=== PATIENT | female | born 1950 | race Caucasian/White ===

== ENCOUNTER 2017-10-05 09:26 | Day surgery (SDC) | payer MEDICARE, MEDICAID ==
[~2017-10-05] VITALS: Ht 165.1 cm; Wt 74.1 kg
[~2017-10-05 09:26] MED LIST: ALBU18HF2 INH; ASCO500C15 PO; ASPI-1265 PO; CAL1TABL8 PO; CHOL100046 PO; DULO20CA50 PO; HYDR-3193 PO; LORA1TAB PO; MULT1TAB70 PO; NAPR-56 PO; ROSU40TA PO; SUMA50TA PO; TIOT4MIS3 IH; VALA500T PO
[2017-10-05] MEDS ORDERED: MIDAZolam 5mg/5ml vial ONE (09:33)
[2017-10-05] MEDS ORDERED: fentaNYL/PF 50MCG/1 ML 2ML syringe ONE (09:33)
[2017-10-05 09:36] VITALS: BP 112/73
[2017-10-05 11:05] VITALS: BP 120/79
[2017-10-05 11:15] VITALS: BP 144/67
[2017-10-05 11:25] VITALS: BP 110/75
[2017-10-05 11:35] VITALS: BP 112/77
== END 2017-10-05 11:36 | disposition home or self-care (01) ==
LOC: GI LAB 09:26
PROVIDERS: ATTEND Internal Medicine Gastroenterology
DX: Z09 Encounter for follow-up examination after completed treatment for conditions other than malignant neoplasm (principal); D12.3 Benign neoplasm of transverse colon; K63.5 Polyp of colon; K52.89 Other specified noninfective gastroenteritis and colitis; E78.5 Hyperlipidemia, unspecified; F17.210 Nicotine dependence, cigarettes, uncomplicated; J45.998 Other asthma; I25.10 Atherosclerotic heart disease of native coronary artery without angina pectoris; K21.9 Gastro-esophageal reflux disease without esophagitis; F41.9 Anxiety disorder, unspecified; M19.90 Unspecified osteoarthritis, unspecified site; F32.9 Major depressive disorder, single episode, unspecified; Z98.41 Cataract extraction status, right eye; Z98.42 Cataract extraction status, left eye; Z90.89 Acquired absence of other organs; Z72.89 Other problems related to lifestyle; Z90.710 Acquired absence of both cervix and uterus; Z85.72 Personal history of non-Hodgkin lymphomas; Z86.010 Personal history of colon polyps; Z79.82 Long term (current) use of aspirin; Z98.890 Other specified postprocedural states; Z79.899 Other long term (current) drug therapy
CPT/HCPCS: 45380; 45385; 99153; G0500; J2250; J3010; J7030; A4620

== ENCOUNTER 2019-02-07 10:26 | Inpatient (IN) | payer MEDICARE, MEDICAID ==
[~2019-02-07] VITALS: Ht 167.6 cm; Wt 70.9 kg
[~2019-02-07 10:26] MED LIST changes: -CAL1TABL8 PO; -CHOL100046 PO
[2019-02-07] MEDS ORDERED: fentaNYL/PF 50MCG/1 ML 2ML syringe IV ONE (10:50)
[2019-02-07 11:21] LABS: BASOPHILS % (AUTO) 0.2 % (0-1); EOSINOPHILS % (AUTO) 0.3 % (0-6); HEMATOCRIT 43.1 % (35.0-45.0); HEMOGLOBIN 14.9 g/dl (12.0-16.0); LYMPHOCYTES # (AUTO) 1.4 X10'3 (1.1-4.8); LYMPHOCYTES % (AUTO) 14.9 % (21-51); MEAN CORPUSCULAR HEMOGLOBIN 31.7 PG (27.0-31.0); MEAN CORPUSCULAR HGB CONC 34.5 g/dL (33.0-36.5); MEAN CORPUSCULAR VOLUME 91.8 FL (78-98); MEAN PLATELET VOLUME 9.5 FL (7.4-10.4); MONOCYTES # (AUTO) 0.8 X10'3 (0-0.9); MONOCYTES % (AUTO) 9.3 % (2-12); NEUTROPHILS # (AUTO) 6.9 X10'3 (1.8-7.7); NEUTROPHILS % (AUTO) 75.3 % (42-75); PLATELET COUNT 154 X10'3 (140-440); RED CELL DISTRIBUTION WIDTH 13.8 % (11.5-14.5); WHITE BLOOD COUNT 9.1 X10'3 (4.5-11.0)
[2019-02-07 11:33] LABS: PARTIAL THROMBOPLASTIN TIME 24 SECONDS (22-32)
[2019-02-07] MEDS ORDERED: magnesium 2GM in 50ml NS 50 ML IV PRN (11:40)
[2019-02-07] MEDS ORDERED: ondansetron/PF 4mg/2ml inj IV PRN (11:40)
[2019-02-07] MEDS ORDERED: magnesium hydroxide 30ml (MOM) UD suspension PO PRN (11:40)
[2019-02-07] MEDS ORDERED: potassium Cl 20 mEq SR tablet PO PRN ×2 (11:40)
[2019-02-07] MEDS ORDERED: acetaminophen 325mg tablet PO PRN (11:40)
[2019-02-07] MEDS ORDERED: morphine 2 MG/ML inj. syringe IV PRN (11:40)
[2019-02-07] MEDS ORDERED: mag hydrox/Alum hydrox/simeth 30ml oral suspension PO PRN (11:40)
[2019-02-07] MEDS ORDERED: HYDROcodone/acetaminophen 5mg/325mg tablet PO PRN (11:40)
[2019-02-07] MEDS ORDERED: magnesium 4gm in 100ml NS 100 ML IV PRN (11:40)
[2019-02-07] MEDS ORDERED: potassium CL 10mEq/100ml bag 100 ML IV PRN ×2 (11:40)
[2019-02-07 11:43] LABS: ALANINE AMINOTRANSFERASE 32 U/L (12-78); ALBUMIN 3.8 G/DL (3.4-5.0); ALBUMIN/GLOBULIN RATIO 1.2 (1.1-1.5); ALKALINE PHOSPHATASE 102 IU/L (46-116); ANION GAP 9 (8-16); ASPARTATE AMINO TRANSFERASE 18 U/L (10-37); BILIRUBIN,TOTAL 0.9 MG/DL (0.1-1.0); BLOOD UREA NITROGEN 11 MG/DL (7-18); BUN/CREATININE RATIO 14.1 (6.6-38.0); CALCIUM 9.5 MG/DL (8.5-10.1); CHLORIDE 106 MMOL/L (99-107); CREATININE 0.78 MG/DL (0.40-0.90); GLUCOSE 112 MG/DL (70-104); POTASSIUM 3.8 MMOL/L (3.5-5.1); SODIUM 142 MMOL/L (135-145); TOTAL CARBON DIOXIDE 26.9 MMOL/L (24-32); TOTAL PROTEIN 7.1 G/DL (6.4-8.2); eGFR 73 ML/MIN
[2019-02-07] MEDS: normal saline 1000ml 1,000 ML IV SCH ×3 (11:53→15:52)
[2019-02-07] MEDS ORDERED: FAMC500T18 PO (13:36)
[2019-02-07] MEDS ORDERED: DULO-31 PO (13:36)
[2019-02-07 13:46] LABS: CLARITY,URINE CLOUDY (Clear); COLOR,URINE YELLOW (Yellow); GLUCOSE, URINE NEGATIVE (Neg); KETONES,URINE NEGATIVE (Neg); LEUKOCYTE ESTERASE ,URINE SMALL (Neg); NITRITES, URINE POSITIVE (Neg); OCCULT BLOOD,URINE NEGATIVE (Neg); PROTEIN,URINE NEGATIVE (Neg); UROBILINOGEN,URINE 0.2 E.U/dL (0.2-1.0)
[2019-02-07 13:47] LABS: UA COLLECTION TYPE FOLEY CATH
[2019-02-07 13:53] LABS: MUCUS STRANDS FEW /LPF (Neg); SQUAMOUS EPITHELIAL CELL,UR FEW /LPF (FEW); WBC CLUMPS,URINE MODERATE /HPF (NEGATIVE)
[2019-02-07 13:54] LABS: BACTERIA,URINE 4+ /HPF (Neg); RBC,URINE 0-2 /HPF (0-2); WBC,URINE 20-30 /HPF (0-4)
[2019-02-07] MEDS ORDERED: LORazepam 2 mg/ml vial IV PRN (14:45)
[2019-02-07] MEDS ORDERED: haloperidol lactate 5mg/ml inj IM PRN (14:45)
[2019-02-07] MEDS ORDERED: haloperidol 5mg tablet PO PRN (14:45)
[2019-02-07] MEDS ORDERED: LORazepam 1 MG tablet PO PRN (14:45)
[2019-02-07] MEDS: ipratropium/albuterol 3ml nebule NEB SCH ×2 (15:17→20:02)
[2019-02-07] MEDS: morphine 2 MG/ML inj. syringe IV PRN (15:32)
--- NOTE | 2019-02-07 15:47 | NUR ---
received patient to room 5735L
[2019-02-07 16:24] VITALS: BP_SYST 114; BP_SYST 132; BP_DIAS 75; BP_DIAS 79
[2019-02-07 18:00] VITALS: BP 132/75
[2019-02-07] MEDS: HYDROcodone/acetaminophen 10/325mg tab PO PRN ×2 (19:30→23:32)
--- NOTE | 2019-02-07 20:00 | NUR ---
pt states constant pain unrelieved by PO pain med; IV Morphine discussed however pt declines additional pain med at present time. pt remains in [facility] traction. Addendum: 02/07/19 at 2300 by Kika Finch RN Amended: Links added.
[2019-02-07 21:34] VITALS: BP 120/69
[2019-02-08] VITALS (17 sets, daily range): BP systolic 100–148; BP diastolic 60–88
[2019-02-08] MEDS: ipratropium/albuterol 3ml nebule NEB SCH ×4 (02:02→20:04)
[2019-02-08 06:13] LABS: BASOPHILS % (AUTO) 0.3 % (0-1); EOSINOPHILS # (AUTO) 0.1 X10'3 (0-0.9); EOSINOPHILS % (AUTO) 0.9 % (0-6); HEMATOCRIT 38.2 % (35.0-45.0); HEMOGLOBIN 12.9 g/dl (12.0-16.0); LYMPHOCYTES # (AUTO) 2.2 X10'3 (1.1-4.8); LYMPHOCYTES % (AUTO) 29.5 % (21-51); MEAN CORPUSCULAR HEMOGLOBIN 31.7 PG (27.0-31.0); MEAN CORPUSCULAR HGB CONC 33.8 g/dL (33.0-36.5); MEAN CORPUSCULAR VOLUME 93.8 FL (78-98); MEAN PLATELET VOLUME 9.7 FL (7.4-10.4); MONOCYTES # (AUTO) 0.8 X10'3 (0-0.9); MONOCYTES % (AUTO) 10.3 % (2-12); NEUTROPHILS # (AUTO) 4.4 X10'3 (1.8-7.7); PLATELET COUNT 133 X10'3 (140-440); RED BLOOD COUNT 4.07 X10'6 (4.20-5.60); RED CELL DISTRIBUTION WIDTH 13.9 % (11.5-14.5); WHITE BLOOD COUNT 7.5 X10'3 (4.5-11.0)
--- NOTE | 2019-02-08 06:25 | NUR ---
Problems reprioritized. Patient report given, questions answered & plan of care reviewed with GOPI Clement.
--- NOTE | 2019-02-08 06:30 | NUR ---
Patient in room ORTHO 4014. I have received report from Kika/Carrie Ott and had the opportunity to ask questions and assume patient care.
[2019-02-08 07:26] LABS: ALANINE AMINOTRANSFERASE 25 U/L (12-78); ALBUMIN 3.1 G/DL (3.4-5.0); ALKALINE PHOSPHATASE 85 IU/L (46-116); ANION GAP 9 (8-16); ASPARTATE AMINO TRANSFERASE 15 U/L (10-37); BILIRUBIN,TOTAL 0.8 MG/DL (0.1-1.0); BLOOD UREA NITROGEN 11 MG/DL (7-18); BUN/CREATININE RATIO 12.8 (6.6-38.0); CALCIUM 8.3 MG/DL (8.5-10.1); CHLORIDE 107 MMOL/L (99-107); CREATININE 0.86 MG/DL (0.40-0.90); GLUCOSE 100 MG/DL (70-104); MAGNESIUM 2.2 MG/DL (1.5-2.4); POTASSIUM 3.8 MMOL/L (3.5-5.1); SODIUM 142 MMOL/L (135-145); TOTAL CARBON DIOXIDE 25.9 MMOL/L (24-32); TOTAL PROTEIN 6.2 G/DL (6.4-8.2); eGFR 65 ML/MIN
[2019-02-08] MEDS: K and/or MAG REPLACEMENT MC SCH (08:00)
[2019-02-08] MEDS: enoxaparin 40mg/0.4ml syringe SQ SCH (08:00)
[2019-02-08] MEDS: multivitamins, therapeutics tablet PO SCH (08:00)
[2019-02-08] MEDS: folic acid 1mg tablet PO SCH (08:00)
[2019-02-08] MEDS: thiamine 100mg tablet PO SCH (08:00)
--- NOTE | 2019-02-08 13:15 | NUR ---
Problems reprioritized. Patient report given, questions answered & plan of care reviewed with Brian in recovery.
[2019-02-08] MEDS ORDERED: ceFAZolin 1GM/D5W- ADD-VANTAGE 50 ML IV ONE (14:05)
[2019-02-08] MEDS ORDERED: fentaNYL/PF 50MCG/1 ML 2ML syringe ONE (14:54)
[2019-02-08] MEDS ORDERED: MIDAZolam 5mg/5ml vial ONE (14:55)
[2019-02-08] MEDS ORDERED: ceFAZolin 1000mg inj ONE ×2 (15:18)
[2019-02-08] MEDS ORDERED: propofol inj 20 ML IV ONE (15:19)
[2019-02-08] MEDS ORDERED: LIDOcaine 1%/PF 5ML 10 MG/ML VIAL ONE (15:19)
[2019-02-08] MEDS ORDERED: ringers solution, lacted 1,000 ML IV SCH (15:32)
[2019-02-08] MEDS ORDERED: meperidine/PF 25mg/ml syringe IV PRN ×3 (15:35)
[2019-02-08] MEDS ORDERED: morphine 4 MG/ML inj SYRINge IV PRN ×2 (15:35)
[2019-02-08] MEDS ORDERED: ondansetron/PF 4mg/2ml inj IV PRN (15:35)
[2019-02-08] MEDS ORDERED: proCHLORperazine 10 MG/2 ml inj IV PRN (15:35)
--- NOTE | 2019-02-08 15:50 | NUR ---
F/C DRAINING CLEAR YELLOW URINE
--- NOTE | 2019-02-08 15:50 | NUR ---
Received from OR via BED , accompanied by Anesthesiologist TRIP and report given by Anesthesiolgist. PATIENT A&OX4, DENIES PAIN, V/S WNL, NEUROVASCULAR CHECKS INTACT, 20G RUE, SCD ON, RIGHT HIP DRESSING CDI. PATIENT SENSATION LEVEL IS T11 RT SPINAL
--- NOTE | 2019-02-08 16:40 | NUR ---
PATIENT A&OX4, DENIES PAIN, V/S WNL, NEUROVASCULAR CHECKS INTACT, 20G RUE, SCD ON, RIGHT HIP DRESSING CDI. PATIENT SENSATION LEVEL IS T11 RT SPINAL, F/C DRAINING CLEAR YELLOW URINE. PATIENT TAKEN TO 4014A WITH ALL BELONGINGS AND HOOKED UP TO MONITORS IN ROOM AND REPORT GIVEN TO CALENDER LET OFF OPERATOR WHO HAS TAKEN OVER PATIENT CARE.
--- NOTE | 2019-02-08 16:41 | NUR ---
Patient in room ORTHO 4014. I have received report from Brian in recovery and had the opportunity to ask questions and assume patient care.
[2019-02-08] MEDS: HYDROcodone/acetaminophen 10/325mg tab PO PRN ×3 (16:59→21:27)
[2019-02-08] MEDS: ceFAZolin 1GM/D5W- ADD-VANTAGE 50 ML IV SCH (17:00)
--- NOTE | 2019-02-08 18:11 | NUR ---
Problems reprioritized. Patient report given, questions answered & plan of care reviewed with Carrie Ott
[2019-02-08] MEDS: normal saline 1000ml 1,000 ML IV SCH (18:54)
[2019-02-08] MEDS: morphine 2 MG/ML inj. syringe IV PRN (19:06)
[2019-02-08] MEDS ORDERED: morphine 2 MG/ML inj. syringe IV PRN (21:15)
--- NOTE | 2019-02-08 21:17 | NUR ---
patient had 1 Comfort and was in increased pain within 2 hours. Morphine administered for about another 2 hours of relief. patient in 10/10 pain. called MD and had Comfort increased to 2 tabs Q 4 hours and increase in morphine to 4 mg for breakthrough relief.
[2019-02-09] MEDS: ceFAZolin 1GM/D5W- ADD-VANTAGE 50 ML IV SCH (00:08)
[2019-02-09] MEDS: HYDROcodone/acetaminophen 10/325mg tab PO PRN ×4 (01:42→20:34)
[2019-02-09 02:00] VITALS: BP 124/76
[2019-02-09] MEDS: ipratropium/albuterol 3ml nebule NEB SCH ×4 (02:19→21:17)
[2019-02-09 06:00] VITALS: BP 119/55
--- NOTE | 2019-02-09 06:07 | NUR ---
Problems reprioritized. Patient report given, questions answered & plan of care reviewed with GOPI Clement.
--- NOTE | 2019-02-09 06:10 | NUR ---
Patient in room ORTHO 4014. I have received report from Carrie Ott and had the opportunity to ask questions and assume patient care.
[2019-02-09 06:40] LABS: BASOPHILS % (AUTO) 0.2 % (0-1); EOSINOPHILS % (AUTO) 0.5 % (0-6); HEMATOCRIT 35.6 % (35.0-45.0); HEMOGLOBIN 12.2 g/dl (12.0-16.0); LYMPHOCYTES # (AUTO) 1.8 X10'3 (1.1-4.8); MEAN CORPUSCULAR HEMOGLOBIN 31.8 PG (27.0-31.0); MEAN CORPUSCULAR HGB CONC 34.2 g/dL (33.0-36.5); MEAN CORPUSCULAR VOLUME 92.8 FL (78-98); MEAN PLATELET VOLUME 9.7 FL (7.4-10.4); MONOCYTES # (AUTO) 0.9 X10'3 (0-0.9); MONOCYTES % (AUTO) 10.6 % (2-12); NEUTROPHILS # (AUTO) 6.1 X10'3 (1.8-7.7); NEUTROPHILS % (AUTO) 68.7 % (42-75); PLATELET COUNT 141 X10'3 (140-440); RED BLOOD COUNT 3.84 X10'6 (4.20-5.60); RED CELL DISTRIBUTION WIDTH 13.6 % (11.5-14.5); WHITE BLOOD COUNT 8.8 X10'3 (4.5-11.0)
[2019-02-09 07:08] LABS: ALANINE AMINOTRANSFERASE 22 U/L (12-78); ALBUMIN 2.9 G/DL (3.4-5.0); ALBUMIN/GLOBULIN RATIO 0.9 (1.1-1.5); ALKALINE PHOSPHATASE 81 IU/L (46-116); ANION GAP 10 (8-16); ASPARTATE AMINO TRANSFERASE 14 U/L (10-37); BILIRUBIN,TOTAL 0.6 MG/DL (0.1-1.0); BLOOD UREA NITROGEN 10 MG/DL (7-18); BUN/CREATININE RATIO 13.2 (6.6-38.0); CALCIUM 8.3 MG/DL (8.5-10.1); CHLORIDE 103 MMOL/L (99-107); CREATININE 0.76 MG/DL (0.40-0.90); GLUCOSE 131 MG/DL (70-104); MAGNESIUM 1.9 MG/DL (1.5-2.4); POTASSIUM 3.6 MMOL/L (3.5-5.1); SODIUM 138 MMOL/L (135-145); TOTAL CARBON DIOXIDE 25.5 MMOL/L (24-32); TOTAL PROTEIN 6.1 G/DL (6.4-8.2); eGFR 75 ML/MIN
[2019-02-09] MEDS: K and/or MAG REPLACEMENT MC SCH (08:00)
[2019-02-09] MEDS: enoxaparin 40mg/0.4ml syringe SQ SCH ×2 (08:00→08:31)
[2019-02-09] MEDS: thiamine 100mg tablet PO SCH (08:30)
[2019-02-09] MEDS: multivitamins, therapeutics tablet PO SCH (08:30)
[2019-02-09] MEDS: folic acid 1mg tablet PO SCH (08:30)
[2019-02-09] MEDS ORDERED: proCHLORperazine 10 MG/2 ml inj IV PRN (09:50)
--- NOTE | 2019-02-09 09:59 | NUR ---
josiane CARDENAS, new order for compazine, too early to give teja
[2019-02-09 10:00] VITALS: BP 106/67
[2019-02-09] MEDS: normal saline 1000ml 1,000 ML IV SCH (12:32)
[2019-02-09 14:00] VITALS: BP 122/68
--- NOTE | 2019-02-09 16:15 | NUR ---
PAGER ID: [phone] MESSAGE: Sara Pineda, MsVargas Malin in [id number] is concerned with starting her Cymbalta and Crestor up again, please advise Thank you Racquel
[2019-02-09] MEDS ORDERED: naproxen 500mg tablet PO PRN (17:20)
[2019-02-09] MEDS ORDERED: SUMAtriptan 25 MG tablet PO PRN (17:20)
[2019-02-09 18:00] VITALS: BP 103/56
--- NOTE | 2019-02-09 18:17 | NUR ---
Problems reprioritized. Patient report given, questions answered & plan of care reviewed with Carrie Ott
[2019-02-09] MEDS: duloxetine 30mg CAPSULE.DR PO SCH (20:29)
[2019-02-09] MEDS: CefTRIAXone/D5W-Rocephin 1gm 50 ML IV SCH (20:34)
[2019-02-09] MEDS ORDERED: atorvastatin 20mg tablet PO SCH (21:00)
[2019-02-09 22:00] VITALS: BP 125/69
[2019-02-10] MEDS: ipratropium/albuterol 3ml nebule NEB SCH ×3 (02:09→16:14)
[2019-02-10] MEDS: HYDROcodone/acetaminophen 10/325mg tab PO PRN (05:46)
--- NOTE | 2019-02-10 05:48 | NUR ---
scanner not working with [place] admini at [id number]
[2019-02-10 06:00] VITALS: BP 113/58
[2019-02-10] MEDS: normal saline 1000ml 1,000 ML IV SCH (06:30)
--- NOTE | 2019-02-10 06:30 | NUR ---
Patient in room ORTHO 4014. I have received report from and had the opportunity to ask questions and assume patient care GOPI Butler.
[2019-02-10 07:11] LABS: BASOPHILS % (AUTO) 0.4 % (0-1); EOSINOPHILS # (AUTO) 0.1 X10'3 (0-0.9); HEMATOCRIT 32.1 % (35.0-45.0); LYMPHOCYTES # (AUTO) 1.5 X10'3 (1.1-4.8); LYMPHOCYTES % (AUTO) 19.4 % (21-51); MEAN CORPUSCULAR HEMOGLOBIN 31.9 PG (27.0-31.0); MEAN CORPUSCULAR HGB CONC 34.3 g/dL (33.0-36.5); MEAN PLATELET VOLUME 9.5 FL (7.4-10.4); MONOCYTES # (AUTO) 0.7 X10'3 (0-0.9); MONOCYTES % (AUTO) 9.1 % (2-12); NEUTROPHILS # (AUTO) 5.4 X10'3 (1.8-7.7); NEUTROPHILS % (AUTO) 70.1 % (42-75); PLATELET COUNT 149 X10'3 (140-440); RED BLOOD COUNT 3.45 X10'6 (4.20-5.60); RED CELL DISTRIBUTION WIDTH 13.5 % (11.5-14.5); WHITE BLOOD COUNT 7.6 X10'3 (4.5-11.0)
[2019-02-10 07:33] LABS: ALANINE AMINOTRANSFERASE 18 U/L (12-78); ALBUMIN 2.6 G/DL (3.4-5.0); ALBUMIN/GLOBULIN RATIO 0.8 (1.1-1.5); ALKALINE PHOSPHATASE 76 IU/L (46-116); ANION GAP 8 (8-16); ASPARTATE AMINO TRANSFERASE 11 U/L (10-37); BILIRUBIN,TOTAL 0.4 MG/DL (0.1-1.0); BLOOD UREA NITROGEN 8 MG/DL (7-18); BUN/CREATININE RATIO 10.8 (6.6-38.0); CHLORIDE 105 MMOL/L (99-107); CREATININE 0.74 MG/DL (0.40-0.90); GLUCOSE 122 MG/DL (70-104); POTASSIUM 3.6 MMOL/L (3.5-5.1); SODIUM 141 MMOL/L (135-145); TOTAL CARBON DIOXIDE 28.5 MMOL/L (24-32); TOTAL PROTEIN 5.9 G/DL (6.4-8.2); eGFR 78 ML/MIN
[2019-02-10] MEDS: K and/or MAG REPLACEMENT MC SCH (08:00)
[2019-02-10] MEDS: CefTRIAXone/D5W-Rocephin 1gm 50 ML IV SCH (08:39)
[2019-02-10] MEDS: multivitamins, therapeutics tablet PO SCH (08:44)
[2019-02-10] MEDS: folic acid 1mg tablet PO SCH (08:45)
[2019-02-10] MEDS: duloxetine 30mg CAPSULE.DR PO SCH (08:47)
[2019-02-10] MEDS: thiamine 100mg tablet PO SCH (08:49)
[2019-02-10] MEDS: enoxaparin 40mg/0.4ml syringe SQ SCH (08:49)
[2019-02-10 10:00] VITALS: BP 99/54
--- NOTE | 2019-02-10 10:30 | NUR ---
Pt refuse acyclovir/states she only takes as needed, and does not need at this time
--- NOTE | 2019-02-10 17:41 | NUR ---
DISCHARGE: Gianna Cargo escorted pt OPAL in WC to transport to [facility], [place]. VSS, denies pain, SOB, resp distress, N/V, vertigo at DC. IV DCd. All necessary DC documents given to transport personnel, all pt belongings sent w/pt. Report called in to Jefry at rehab facility. pt thanked [facility] staff for her care.
== END 2019-02-10 17:30 | DRG 481 ==
LOC: ER 10:27 → ED HOLD 12:25 → ORTHO 4S 15:35
PROVIDERS: ADMIT Family Medicine; ATTEND Family Medicine
PROC: 0QS606Z Reposition Right Upper Femur with Intramedullary Internal Fixation Device, Open Approach (ICD-10-PCS; principal; 2019-02-08 14:49)
DX: S72.141A Displaced intertrochanteric fracture of right femur, initial encounter for closed fracture (principal); J44.0 Chronic obstructive pulmonary disease with (acute) lower respiratory infection; N39.0 Urinary tract infection, site not specified; E78.5 Hyperlipidemia, unspecified; J20.9 Acute bronchitis, unspecified; F10.10 Alcohol abuse, uncomplicated; B96.20 Unspecified Escherichia coli [E. coli] as the cause of diseases classified elsewhere; F32.9 Major depressive disorder, single episode, unspecified; G43.909 Migraine, unspecified, not intractable, without status migrainosus; M19.90 Unspecified osteoarthritis, unspecified site; F17.210 Nicotine dependence, cigarettes, uncomplicated; M79.7 Fibromyalgia; Y93.01 Activity, walking, marching and hiking; W01.0XXA Fall on same level from slipping, tripping and stumbling without subsequent striking against object, initial encounter; Z80.0 Family history of malignant neoplasm of digestive organs; Z80.3 Family history of malignant neoplasm of breast; Z82.49 Family history of ischemic heart disease and other diseases of the circulatory system; Z83.3 Family history of diabetes mellitus; Z85.72 Personal history of non-Hodgkin lymphomas; Z90.710 Acquired absence of both cervix and uterus; Y92.59 Other trade areas as the place of occurrence of the external cause; Y99.8 Other external cause status; Z79.899 Other long term (current) drug therapy; Z71.6 Tobacco abuse counseling
CPT/HCPCS: 36415; 71045; 73502; 76000; 80053; 81001; 82948; 83735; 85025; 85610; 85730; 86885; 86900; 86901; 87077; 87088; 87186; 93005; 94640; 94760; 96374; 97110; 97116; 97161; 97530; 99285; A4615; A6222; A6258; A6402; A7000; C1713; G0378; J0690; J0696; J0780; J1650; J2250; J2270; J2405; J2704; J3010; J7030; J7120

== ENCOUNTER 2023-02-20 14:56 | Emergency (ER) | payer MEDICARE, MEDICAID ==
[~2023-02-20] VITALS: Ht 165.1 cm; Wt 79.5 kg
[~2023-02-20 14:56] MED LIST changes: -ASCO500C15 PO; +ASCO500C18 PO; -ASPI-1265 PO; +DULO-31 PO; -DULO20CA50 PO; +FAMC500T23 PO; -HYDR-3193 PO; +HYDR-4298 PO; -LORA1TAB PO; -MULT1TAB70 PO; +MULT1TAB71 PO; -VALA500T PO
[2023-02-20] MEDS ORDERED: LIDOcaine 1% (10mg/ml)w/preservative inj. 20ml MDV SQ ONE (16:50)
[2023-02-20] MEDS ORDERED: TETanus/Pertussis (Acell)/Diphther VAC/PF (Tdap-Adult) 0.5ml syringe IMVAC ONE (17:15)
[2023-02-20 17:36] VITALS: BP 132/84; PULSE 68; RESP 16; TEMP 98.1; O2SAT 99
== END 2023-02-20 17:37 | disposition home or self-care (01) ==
LOC: ER 14:56
DX: S61.412A Laceration without foreign body of left hand, initial encounter (principal); W26.0XXA Contact with knife, initial encounter; Y93.89 Activity, other specified; Y92.89 Other specified places as the place of occurrence of the external cause; Y99.8 Other external cause status
CPT/HCPCS: 12001; 73130; 90471; 99283; J3490; A6449

== ENCOUNTER 2023-08-08 10:09 | Emergency (ER) | payer MEDICARE, MEDICAID ==
[~2023-08-08] VITALS: Ht 165.1 cm; Wt 86.0 kg
[2023-08-08 10:58] LABS: BASOPHILS % (AUTO) 0.2 % (0-1); EOSINOPHILS % (AUTO) 0.2 % (0-6); HEMATOCRIT 44.3 % (35.0-45.0); HEMOGLOBIN 14.7 g/dl (12.0-16.0); LYMPHOCYTES # (AUTO) 2.5 X10'3 (1.1-4.8); LYMPHOCYTES % (AUTO) 15.8 % (21-51); MEAN CORPUSCULAR HEMOGLOBIN 29.1 PG (27.0-31.0); MEAN CORPUSCULAR HGB CONC 33.1 g/dL (33.0-36.5); MEAN CORPUSCULAR VOLUME 88.1 FL (78-98); MEAN PLATELET VOLUME 9.5 FL (7.4-10.4); MONOCYTES # (AUTO) 0.8 X10'3 (0-0.9); MONOCYTES % (AUTO) 5.3 % (2-12); NEUTROPHILS # (AUTO) 12.2 X10'3 (1.8-7.7); NEUTROPHILS % (AUTO) 78.5 % (42-75); PLATELET COUNT 187 X10'3 (140-440); RED BLOOD COUNT 5.03 X10'6 (4.20-5.60); RED CELL DISTRIBUTION WIDTH 14.2 % (11.5-14.5); WHITE BLOOD COUNT 15.6 X10'3 (4.5-11.0)
[2023-08-08 11:34] LABS: ALBUMIN 3.5 G/DL (3.4-5.0); ANION GAP 10 (8-16); BLOOD UREA NITROGEN 17 MG/DL (7-18); BUN/CREATININE RATIO 16.8 (10.0-20.0); CALCIUM 9.1 MG/DL (8.5-10.1); CHLORIDE 105 MMOL/L (99-107); CREATININE 1.01 MG/DL (0.40-0.90); GLUCOSE 102 MG/DL (70-104); POTASSIUM 3.6 MMOL/L (3.5-5.1); PRO BRAIN NATRIURETIC PEPTIDE 199 PG/ML (0-125); SODIUM 141 MMOL/L (135-145); TOTAL CARBON DIOXIDE 25.6 MMOL/L (24-32); eCRCL 44 ML/MIN; eGFR 54 ML/MIN
[2023-08-08] MEDS ORDERED: BENZ-38 PO (13:07)
[2023-08-08 14:13] VITALS: BP 116/72; PULSE 68; RESP 14; TEMP 98.1; O2SAT 99
== END 2023-08-08 14:17 | disposition home or self-care (01) ==
LOC: ER 10:10
DX: J20.9 Acute bronchitis, unspecified (principal); J45.909 Unspecified asthma, uncomplicated; M19.90 Unspecified osteoarthritis, unspecified site; Z85.72 Personal history of non-Hodgkin lymphomas; Z20.822 Contact with and (suspected) exposure to COVID-19; Z95.1 Presence of aortocoronary bypass graft
CPT/HCPCS: 36415; 71045; 80048; 83880; 84484; 85025; 87811; 93005; 99285